=== PATIENT | female | born 1930 | race Caucasian/White ===

== ENCOUNTER 2017-05-31 22:23 | Emergency (ER) | payer OTHER, BC ==
[2017-05-31] MEDS ORDERED: ONDANSETRON 4 MG/2 ML VIAL IVPB ONE (22:44)
[2017-05-31 22:56] VITALS: TEMP 97.2; BMI 25.0
[2017-05-31] MEDS ORDERED: ONDANSETRON 4 MG/2 ML VIAL ONE (22:56)
[2017-05-31 23:03] LABS: BASO % 0.2 % (0-2.0); EOS % 0.3 % (0-4.5); HEMATOCRIT 46.4 % (32.4-45.2); HEMOGLOBIN 15.2 GM/dl (10.7-15.3); LYMPH % 11.9 % (8-40); MCH 28.9 pg (25.7-33.7); MCHC 32.8 g/dl (32.0-36.0); MEAN CELL VOLUME 88.2 fl (80-96); MONO % 13.2 % (3.8-10.2); NEUT % 74.4 % (42.8-82.8); PLATELET COUNT 248 K/MM3 (134-434); RBC 5.26 M/mm3 (3.60-5.2); RDW 13.5 % (11.6-15.6); WHITE BLOOD COUNT 8.1 K/mm3 (4.0-10.8)
[2017-05-31 23:08] LABS: ACTIVATED PTT 22.7 SECONDS (24.0-38.9)
[2017-05-31 23:11] LABS: ALBUMIN 4.5 g/dl (3.5-5.0); ALK PHOS 54 U/L (32-92); ANION GAP 9 (8-16); BILIRUBIN,TOTAL 0.5 mg/dl (0.2-1.0); BLOOD UREA NITROGEN 17 mg/dl (7-18); CALCIUM 9.7 mg/dl (8.4-10.2); CHLORIDE 102 mmol/L (98-107); CO2 27 mmol/L (22-28); CREATININE 0.7 mg/dl (0.6-1.3); GLUCOSE,RANDOM 160 mg/dl (74-106); SGOT/AST 25 U/L (10-42); SGPT/ALT 17 U/L (10-40); SODIUM 138 mmol/L (136-145); TOT PROT 7.2 g/dl (6.4-8.3)
[2017-05-31 23:12] LABS: INR 1.03 (0.82-1.09); PROTHROMBIN TIME (PATIENT) 11.5 SEC (10.2-13.0)
--- NOTE | 2017-05-31 23:19 | PDOC ---
History of Present Illness - General Chief Complaint: Nausea/Vomiting Stated Complaint: VOMITING SINCE 8PM Time Seen by Provider: 05/31/17 22:43 - History of Present Illness Initial Comments: 05/31/17 23:16 87 F with no PMH presents to ED with 1 day of abdominal pain and vomiting. Pt states that it began tonight around 5PM. She endorses abdominal distention and diffuse pain, with several episodes of NBNB emesis. Denies F/C. Denies diarrhea. States she feels constipated. Her last BM was yesterday and she notes only a small amount of stool. Pt denies h/o SBO, though she notes she has had several abdominal surgeries, including appy, edd, and bladder surgery. Pt denies CP/SOB. Past History - Past Medical History Allergies/Adverse Reactions: Allergies Allergy/AdvReac Type Severity Reaction Status Date / Time codeine Allergy Verified 05/31/17 22:45 Sulfa (Sulfonamide Allergy Verified 05/31/17 22:45 Antibiotics) Home Medications: Ambulatory Orders Amlodipine Besylate [Norvasc -] 2.5 mg PO DAILY 08/03/14 Atorvastatin Ca [Lipitor] 10 mg PO HS 08/03/14 Ramipril 10 mg PO DAILY 08/03/14 Zolpidem Tartrate [Ambien] 5 mg PO HS 05/31/17 COPD: No Disorders: Yes HTN: Yes Hypercholesterolemia: Yes - Surgical History Appendectomy: Yes Cholecystectomy: Yes - Suicide/Smoking/Psychosocial Hx Smoking History: Former smoker Have you smoked in the past 12 months: Yes If you are a former smoker, when did you quit?: 50 Information on smoking cessation initiated: No Hx Alcohol Use: No Drug/Substance Use Hx: No Substance Use Type: Alcohol Review of Systems - Review of Systems Comments:: 05/31/17 23:17 "GENERAL/CONSTITUTIONAL: No fever or chills. No weakness. HEAD, EYES, EARS, NOSE AND THROAT: No change in vision. No ear pain or discharge. No sore throat. CARDIOVASCULAR: No chest pain or shortness of breath. RESPIRATORY: No cough, wheezing, or hemoptysis. GASTROINTESTINAL: +abdominal pain + N/V GENITOURINARY: No dysuria, frequency, or change in urination. MUSCULOSKELETAL: No joint or muscle swelling or pain. No neck or back pain. SKIN: No rash NEUROLOGIC: No headache, vertigo, loss of consciousness, or change in strength/ sensation. ENDOCRINE: No increased thirst. No abnormal weight change. HEMATOLOGIC/LYMPHATIC: No anemia, easy bleeding, or history of blood clots. ALLERGIC/IMMUNOLOGIC: No hives or skin allergy. " *Physical Exam - Vital Signs Last Vital Signs Temp Pulse Resp BP Pulse Ox 97.2 F L 70 18 147/53 99 05/31/17 22:50 05/31/17 22:50 05/31/17 22:50 05/31/17 22:50 05/31/17 22:50 - Physical Exam Comments: 05/31/17 23:18 "GENERAL: Awake, alert, and fully oriented, in no acute distress HEAD: No signs of trauma EYES: PERRLA, EOMI, sclera anicteric, conjunctiva clear ENT: Auricles normal inspection, hearing grossly normal, nares patent, oropharynx clear without exudates. Moist mucosa NECK: Nontender, no stepoffs, Normal ROM, supple, no lymphadenopathy, JVD, or masses LUNGS: Breath sounds equal, clear to auscultation bilaterally. No wheezes, and no crackles HEART: Regular rate and rhythm, normal S1 and S2, no murmurs, rubs or gallops ABDOMEN: Distended, tympanitic, diffuse TTP EXTREMITIES: Normal range of motion, no edema. No clubbing or cyanosis. No cords, erythema, or tenderness NEUROLOGICAL: Cranial nerves II through XII intact. 5/5 strength and sensation in all extremities, Normal speech, normal gait SKIN: Warm, Dry, normal turgor, no rashes or lesions noted. " Heart Score/ECG Review - History History: Slightly suspicious - Electrocardiogram EKG: Normal - Age Age: >/= 65 - Risk Factors Based on the list above the patient has:: No risk factors known - Troponin Troponin: 1-3x normal limit - Score Heart Score - Total: 3 - ECG Impressions Comment:: 06/01/17 02:13 NSR, no IFEANYI/STDs, no TWIs, axis wnl, intervals wnl, rate 80 ED Treatment Course - LABORATORY CBC & Chemistry Diagram: 05/31/17 22:45 05/31/17 22:45 - ADDITIONAL ORDERS Additional order review: Laboratory Results 05/31/17 05/31/17 22:45 22:45 PT with INR 11.5 INR 1.03 PTT (Actin FS) 22.7 L Sodium 138 Potassium 4.0 Chloride 102 Carbon Dioxide 27 Anion Gap 9 BUN 17 D Creatinine 0.7 D Creat Clearance w eGFR > 60 Random Glucose 160 H D Calcium 9.7 Total Bilirubin 0.5 D AST 25 D ALT 17 D Alkaline Phosphatase 54 D Creatine Kinase 107 Total Protein 7.2 Albumin 4.5 D 05/31/17 22:45 RBC 5.26 H MCV 88.2 MCHC 32.8 RDW 13.5 MPV 7.0 L Neutrophils % 74.4 Lymphocytes % 11.9 Monocytes % 13.2 H Eosinophils % 0.3 Basophils % 0.2 - RADIOLOGY Radiology Studies Ordered: Category Date Time Status ABDOMEN & PELVIS CT WITH CONTR [CT] Stat CT Scan 05/31/17 23:13 Ordered - Medications Given in the ED: ED Medications Discontinued Medications Generic Name Dose Route Start Last Admin Trade Name Freq PRN Reason Stop Dose Admin Ondansetron HCl 4 mg 05/31/17 22:44 05/31/17 23:01 Zofran Injection IVPB 05/31/17 22:45 4 mg ONCE ONE Administration Medical Decision Making - Medical Decision Making 05/31/17 23:18 87 F with abdominal pain/distention and N+V x 1 day. Concerning for obstruction , as pt has had multiple prior abdominal surgeries. Anginal equivalent unlikely given nonischemic EKG and lack of chest pain/SOB. - Labs - CTAP - IVF, zofran 06/01/17 00:43 CT read: "Mild basilar dependent atelectasis is noted The visualized cardiac chambers are normal size and configuration. Status post cholecystectomy with minimal biliary duct dilation. 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 Normal pancreas, spleen, adrenal glands and kidneys. The stomach and small bowel are normal. There is prominent proximal colonic distention with air and liquid stool, but no bowel wall thickening in distal solid stool, suggesting a diarrheal illness. No bowel obstruction. There is no aortic aneurysm. There is no significant retroperitoneal lymphadenopathy." CTAP without signs of obstruction. Shows likely diarrheal illness. Pt reassessed - now able to tolerate PO without vomiting. Pt's abdomen re-examined - no tenderness on exam. Pt likely with viral gastroenteritis. No evidence of colitis on CT. Pt well appearing, tolerating PO. 06/01/17 01:45 Troponin elevated to 0.15. I informed pt of her abnormal blood tests and that she may be having a heart attack. I recommended admission to hospital for trending of troponins and cardiology evaluation. Pt however adamantly denies any chest pain or shortness of breath, stating that she does not believe she is having a heart attack and wishes to go home. The patient is clinically sober, free from distracting injury , appears to have intact insight and judgment and reason and in my opinion has the capacity to make decisions. Pt is well appearing with normal vitals. HEART score calculated to be 3, even with mildly elevated troponin. Nonetheless, I recommend admission to hospital for tele monitoring and serial trops. However, pt is adamant about going home. Will DC at this time with strict return precautions. 06/01/17 02:51 I called pt to ensure she arrived home safely and asked how she was feeling. Pt states that she does not feel well. At this time, I stressed the importance of returning to the ER for further evaluation. Pt expresses understanding. She states that she cannot arrange transportation to the hospital, at which time I advised pt to call 911 immediately. Pt understands and states she will call 911. She states that she will be going to [facility], as this is where her primary doctors are. I called [place] emergency department and spoke with attending physician, who confirmed that the pt has arrived to their facility. I relayed the patient's lab results and CT results. The ED attending states that she will repeat the troponin and EKG. *DC/Admit/Observation/Transfer Diagnosis at time of Disposition: Gastroenteritis - Discharge Dispostion Disposition: HOME Condition at time of disposition: Stable Admit: Yes - Referrals Referrals: Yusra Barber [Primary Care Provider] - - Patient Instructions Printed Discharge Instructions: DI for Viral Gastroenteritis -- Adult Additional Instructions: Drink plenty of fluids to stay hydrated. You may have a viral illness causing your nausea and vomiting. You may develop diarrhea as well. We also found a small aneurysm in your splenic artery, which is likely unrelated to your symptoms today. You should have repeat imaging soon to make sure that this aneurysm does not get bigger. If you experience worsening abdominal pain, vomiting, chest pain, fevers, or any other concerning symptoms, return to the ER immediately. Otherwise, follow up with your primary doctor within 1 week for a re-evaluation. - Post Discharge Activity - Attestations Physician Attestion: 06/01/17 00:44 I, Dr. Eber Rodriguez MD, attest that this document has been prepared under my direction and personally reviewed by me in its entirety. I further attest, that it accurately reflects all work, treatment, procedures and medical decision -making performed by me.
[2017-06-01 00:25] LABS: LIPASE 198 U/L (73-393)
[2017-06-01] MEDS ORDERED: ACETAMINOPHEN INJECTION 100 ML IVPB ONE (00:41)
[2017-06-01] MEDS ORDERED: ACETAMINOPHEN 1000 MG/100 ML VIAL (NON FORMULARY) IVPB ONE (00:41)
[2017-06-01] MEDS ORDERED: SODIUM CHLORIDE 1,000 ML IV SCH (00:45)
[2017-06-01 01:40] VITALS: BP 140/69; PULSE 87
--- NOTE | 2017-06-02 11:52 | EKG ---
Test Reason : Blood Pressure : / mmHG Vent. Rate : 080 BPM Atrial Rate : 080 BPM P-R Int : 178 ms QRS Dur : 072 ms QT Int : 390 ms P-R-T Axes : 058 001 048 degrees QTc Int : 449 ms NORMAL SINUS RHYTHM MINIMAL VOLTAGE CRITERIA FOR LVH, MAY BE NORMAL VARIANT BORDERLINE ECG NO PREVIOUS ECGS AVAILABLE Confirmed by JENNIFER HARRY MD ([id number]) on 06/02/2017 11:51:54 AM Referred By: Confirmed By:JENNIFER HARRY MD
== END 2017-06-01 01:42 | disposition home or self-care (01) ==
LOC: FER 22:23
PROC: 3E033NZ Introduction of Analgesics, Hypnotics, Sedatives into Peripheral Vein, Percutaneous Approach (ICD-10-PCS; principal; 2017-05-31)
PROC: 3E033GC Introduction of Other Therapeutic Substance into Peripheral Vein, Percutaneous Approach (ICD-10-PCS; 2017-05-31)
DX: K52.9 Noninfective gastroenteritis and colitis, unspecified (principal); I10 Essential (primary) hypertension; E78.00 Pure hypercholesterolemia, unspecified; Z87.891 Personal history of nicotine dependence; K92.9 Disease of digestive system, unspecified
CPT/HCPCS: 36415; 74177-TC; 80053; 82550; 83690; 84484; 85025; 85610; 85730; 93005; 99281-25

== ENCOUNTER 2019-02-26 12:47 | Emergency (ER) | payer OTHER, BC ==
--- NOTE | 2019-02-26 12:52 | PDOC ---
History of Present Illness - General Chief Complaint: Bite Stated Complaint: LEFT LOWER LEG CAT BITE Time Seen by Provider: 02/26/19 12:51 - History of Present Illness Initial Comments: 02/26/19 13:03 88 year old with a history of HTN and HLD who presents after being bitten by a stray cat. The patient reports that there was an abandoned cat that "attacked" her and her dog. The patient reports that she knows that the cat did not have an logistics specialist. She was not able to capture the cat. ROS GENERAL/CONSTITUTIONAL: No fever or chills. No weakness. CARDIOVASCULAR: No chest pain or shortness of breath RESPIRATORY: No cough, wheezing, or hemoptysis. GASTROINTESTINAL: No nausea, vomiting, diarrhea or constipation. GENITOURINARY: No dysuria, frequency, or change in urination. MUSCULOSKELETAL: + joint or muscle swelling or pain. No neck or back pain. SKIN: No rash NEUROLOGIC: No headache, vertigo, loss of consciousness, or change in strength/ sensation. PE GENERAL: Awake, alert, and fully oriented, in no acute distress HEAD: No signs of trauma, normocephalic, atraumatic EYES: EOMI, sclera anicteric, conjunctiva clear ENT: oropharynx clear without exudates. Moist mucosa NECK: Normal ROM, supple LUNGS: No distress, speaks full sentences, clear to auscultation bilaterally HEART: Regular rate and rhythm, normal S1 and S2, no murmurs, rubs or gallops, peripheral pulses normal and equal bilaterally. EXTREMITIES : L calf, 3 erythematous puncture wounds NEUROLOGICAL: Cranial nerves II through XII grossly intact. Normal speech, normal gait, no focal sensorimotor deficits SKIN: Warm, Dry, normal turgor, no rashes or lesions noted MDM DDX including but not limited to: animal bite w/ risk of rabies ED Course: Last tetanus 2005 Patient treated with boostrix, IgG rabies, Rabies vaccine Patient d/c with vaccine regimen and pcp f/u return precuations Dyan Jeter, PGY2 Emergency Medicine Past History - Past Medical History Allergies/Adverse Reactions: Allergies Allergy/AdvReac Type Severity Reaction Status Date / Time codeine Allergy Verified 02/26/19 12:49 Sulfa (Sulfonamide Allergy Verified 02/26/19 12:49 Antibiotics) Home Medications: Ambulatory Orders Amlodipine Besylate [Norvasc -] 2.5 mg PO DAILY 08/03/14 Atorvastatin Ca [Lipitor] 10 mg PO HS 08/03/14 Ramipril 10 mg PO DAILY 08/03/14 Zolpidem Tartrate [Ambien] 5 mg PO HS 05/31/17 Amox-Tr/K Cl [Augmentin - 875Mg Tablet] 1 tab PO BID #14 tablet 02/26/19 Amox-Tr/K Cl [Augmentin - 875Mg Tablet] 1 tab PO BID #14 tablet 02/26/19 COPD: No Disorders: Yes HTN: Yes Hypercholesterolemia: Yes - Surgical History Appendectomy: Yes Cholecystectomy: Yes - Psycho Social/Smoking Cessation Hx Smoking History: Former smoker Have you smoked in the past 12 months: Yes If you are a former smoker, when did you quit?: 50 Hx Alcohol Use: No Drug/Substance Use Hx: No Substance Use Type: Alcohol Discharge - Discharge Information Problems reviewed: Yes Clinical Impression/Diagnosis: Animal bite Condition: Stable Disposition: HOME - Admission No - Additional Discharge Information Prescriptions: Amox-Tr/K Cl [Augmentin - 875Mg Tablet] 1 tab PO BID #14 tablet Amox-Tr/K Cl [Augmentin - 875Mg Tablet] 1 tab PO BID #14 tablet - Follow up/Referral - Patient Discharge Instructions Patient Printed Discharge Instructions: How to Care for a Wild Animal Bite, DI for Animal Bites, DI for Rabies Vaccine Additional Instructions: You were seen in the ED for a stray cat bite You were treated with rabies vaccine, rabies IgG, tetanus shot You should follow up with your Family Doctor within 1 week. You have a prescription of antibiotics to your pharmacy that should be taken as prescribed. Return to the ED on Tuesday03/05/19 and Tuesday03/19/19 for completion of your Rabies vaccine series Return to the ED immediately if you have worsening pain, swelling, warmth, redness or fever at the bite site. - Post Discharge Activity Work/Back to School Note: Rabies Vaccination F/U Brittni.
--- NOTE | 2019-02-26 12:55 | PDOC ---
Attending Attestation - Resident Resident Name: Dyan Jeter - ED Attending Attestation I have performed the following: I have examined & evaluated the patient, The case was reviewed & discussed with the resident, I agree w/resident's findings & plan, Exceptions are as noted - HPI HPI: 02/26/19 13:09 88yo female with hx of htn presents ambulatory for eval of a cat bite. [place] and a stray cat attacked both her and her dog. Pt w 3 cat bite puncture wounds to the LLE. No active bleeding or erythema. Pt states her puppy was also attacked and is at the vet. Last tetanus was 2005. Pt denies all other injuries or complaints. Per the patient, the cat does not belong to anyone at the car wash - they put the cat in a brown box when she had kittens- most likely a stray cat. - Physicial Exam PE: 02/26/19 13:11 Gen: aaox3, anxious heart: +s1s2 reg lungs: cta b/l abd: soft, nt/nd +bs ext: LLE lateral calf with 3 puncture wounds, no surrounding erythema or bleeding. No calf ttp - Medical Decision Making 02/26/19 13:13 88yo female s/p cat bit to the LLE -concerned the cat was not vaccinated -will need an updated tetanus, will need rabies immunoglobulin and vaccine -will need abx given cat bite -discussed rabies vaccine in detail and immunoglobulin - pt agrees with the plan -will start augmentin 02/26/19 13:58 pt received all meds augmentin sent to pharmacy tolerated all injections stable for dc to home
[2019-02-26 13:01] VITALS: BP 153/71; PULSE 98; TEMP 98.1; BMI 23.6
[2019-02-26] MEDS ORDERED: DIPHTH,PERTUSS(ACELL),TET 0.5 ML DISP.SYRIN IM ONE ×2 (13:02→13:24)
[2019-02-26] MEDS ORDERED: RABIES IMMUNE GLOBULIN 300 UNITS/1 ML VIAL IM ONE (13:02)
[2019-02-26] MEDS ORDERED: RABIES VACCINE (PCEC)/PF 2.5 UNIT/VIAL IM ONE ×2 (13:03→13:23)
[2019-02-26] MEDS ORDERED: AMOX TR/POT CLAV 875MG/125MG TABLETS (FP) PO ONE (13:09)
[2019-02-26] MEDS ORDERED: AMOX TR/POT CLAV 875MG/125MG TABLETS (FP) ONE (13:23)
[2019-02-26] MEDS ORDERED: RABIES IMMUNE GLOBULIN 300 UNITS/1 ML VIAL ONE (13:24)
== END 2019-02-26 14:30 | disposition home or self-care (01) ==
LOC: FER 12:47
PROC: 3E0234Z Introduction of Serum, Toxoid and Vaccine into Muscle, Percutaneous Approach (ICD-10-PCS; principal; 2019-02-26)
PROC: 3E0234Z Introduction of Serum, Toxoid and Vaccine into Muscle, Percutaneous Approach (ICD-10-PCS; 2019-02-26)
DX: S81.852A Open bite, left lower leg, initial encounter (principal); W55.01XA Bitten by cat, initial encounter; Y93.89 Activity, other specified; Y92.410 Unspecified street and highway as the place of occurrence of the external cause; Z87.891 Personal history of nicotine dependence; N39.9 Disorder of urinary system, unspecified; I10 Essential (primary) hypertension; E78.00 Pure hypercholesterolemia, unspecified; Z88.6 Allergy status to analgesic agent; Z88.2 Allergy status to sulfonamides; Z20.3 Contact with and (suspected) exposure to rabies; Z23 Encounter for immunization
CPT/HCPCS: 90375; 90675; 90715; 99283-25

== ENCOUNTER 2019-03-01 12:04 | Emergency (ER) | payer OTHER, BC ==
[2019-03-01] MEDS ORDERED: RABIES VACCINE (PCEC)/PF 2.5 UNIT/VIAL IM ONE ×2 (12:11→12:25)
--- NOTE | 2019-03-01 12:11 | PDOC ---
History of Present Illness - General Chief Complaint: Revisit,Rabies Injection Stated Complaint: RABIES VACCINE Time Seen by Provider: 03/01/19 12:10 History Source: Patient Exam Limitations: No Limitations - History of Present Illness Initial Comments: 88 year old female with PMH HTN, HLD presented to ED for second round of rabies vaccination after being bit by a stray cat. Pt reported she stopped the Augmentin after 3 pills on her own 2/2 n/v/d. She denied increasing redness at the site, fever. She reported she was seen by her PCP today, who switched the medication for her and sent a prescription to the pharmacy, she does not know the name of the medicine and has not picked it up yet. ROS General: denied fever, chills, generalized weakness. HEENT: denied sore throat, rhinorrhea, ear pain. Cardiovascular: denied chest pain, palpitations, syncope, diaphoresis. Respiratory: denied shortness of breath, cough, sputum production, hemoptysis. Gastrointestinal: denied abdominal pain, nausea, vomiting, diarrhea, constipation, blood in stool. Genitourinary: denied dysuria, increased urinary frequency, hematuria, urinary incontinence, flank pain. Back: denied back pain. Musculoskeletal: denied joint pain, muscle pain, joint swelling. Neurological: denied headache, dizziness, numbness, tingling, weakness. Integumentary: denied rash, laceration, abrasion. Hematologic/Lymphatic: denied bruising or bleeding. PE Constitutional: Well-nourished, Well-developed, appearing stated age. HEENT: head is normocephalic, atraumatic. EOMI. PERRLA. Neck: supple. Full ROM. Cardiovascular: regular heart rhythm. no murmurs. no pericardial friction rub. Respiratory: clear to auscultation bilaterally. no crackles, rhonchi or wheezing. no stridor. Gastrointestinal: soft, nontender. normal bowel sounds. no rebound, guarding, masses. Extremities: peripheral pulses intact. no lower extremity edema. Neurological: CN 2-12 grossly intact. moves all four extremities. Psych: awake, alert, oriented x3. follows commands. answers questions appropriately. Skin: 2 cm abrasion to left low leg. no surrounding erythema. no streaking. no crepitus. no tenderness around the area. Past History - Past Medical History Allergies/Adverse Reactions: Allergies Allergy/AdvReac Type Severity Reaction Status Date / Time codeine Allergy Verified 02/26/19 12:49 Sulfa (Sulfonamide Allergy Verified 02/26/19 12:49 Antibiotics) Home Medications: Ambulatory Orders Amlodipine Besylate [Norvasc -] 2.5 mg PO DAILY 08/03/14 Atorvastatin Ca [Lipitor] 10 mg PO HS 08/03/14 Ramipril 10 mg PO DAILY 08/03/14 Zolpidem Tartrate [Ambien] 5 mg PO HS 05/31/17 COPD: No Disorders: Yes HTN: Yes Hypercholesterolemia: Yes - Surgical History Appendectomy: Yes Cholecystectomy: Yes - Psycho Social/Smoking Cessation Hx Smoking History: Former smoker Have you smoked in the past 12 months: Yes If you are a former smoker, when did you quit?: 50 Hx Alcohol Use: No Drug/Substance Use Hx: No Substance Use Type: Alcohol Medical Decision Making - Medical Decision Making 88 year old female with above PMH presented to ED for 2nd Rabies vaccination 3s/ p exposure bite by unknown feline. Initial Vital Signs Temp Pulse Resp BP Pulse Ox 98.2 F 77 16 134/44 L 99 03/01/19 12:05 03/01/19 12:05 03/01/19 12:05 03/01/19 12:05 03/01/19 12:05 Afebrile. No tachycardia. No tachypnea. Labs ordered: none Imaging ordered: none Medications ordered: Rabies vaccination Pt reported her PCP has provided her with replacement antibiotic for Augmentin. Clinically there is no cellulitis at this time. Pt informed that if she needs an antibiotic she can call for prescription should something happen when she gets to the pharmacy. Pt discharged. Discharge - Discharge Information Problems reviewed: Yes Clinical Impression/Diagnosis: Need for rabies vaccination Condition: Good Disposition: HOME - Admission No - Follow up/Referral Referrals: Rylee Stevens [Primary Care Provider] - - Patient Discharge Instructions Patient Printed Discharge Instructions: DI for Rabies Vaccine Additional Instructions[facility] for your next rabies vaccination. Return sooner for increasing redness around the site of the bite, fever, vomiting, chest pain, shortness of breath or any other new, worsening or concerning symptoms. - Post Discharge Activity Work/Back to School Note: Rabies Vaccination F/U Brittni.
[2019-03-01 12:17] VITALS: BP 134/44; PULSE 77; TEMP 98.2; BMI 23.8
--- NOTE | 2019-03-01 12:27 | PDOC ---
Attending Attestation - Resident Resident Name: IvettJoannaa - ED Attending Attestation I have performed the following: I have examined & evaluated the patient, The case was reviewed & discussed with the resident, I agree w/resident's findings & plan, Exceptions are as noted - HPI HPI: 03/01/19 12:26 88y F presenting for redosing of rabies for her 2nd shot pt was bit by a cat and was started on abx wound is well without redness/swelling/pain/fevers pt has no complaints exam: LLE shows a scab without erythema/induration/fluctuance/pain no signs of infection will give her her rabies shot return for furture shots as discussed - Physicial Exam PE: 03/01/19 13:00 see agove - Medical Decision Making 03/01/19 13:00 see above
== END 2019-03-01 12:46 | disposition home or self-care (01) ==
LOC: FER 12:04
PROC: 3E0234Z Introduction of Serum, Toxoid and Vaccine into Muscle, Percutaneous Approach (ICD-10-PCS; principal; 2019-03-01)
DX: Z23 Encounter for immunization (principal); Z20.3 Contact with and (suspected) exposure to rabies; Z88.2 Allergy status to sulfonamides; Z88.6 Allergy status to analgesic agent
CPT/HCPCS: 90675; 99281-25

== ENCOUNTER 2019-03-05 09:31 | Emergency (ER) | payer OTHER, BC ==
--- NOTE | 2019-03-05 09:47 | PDOC ---
History of Present Illness - General Chief Complaint: Revisit,Rabies Injection Stated Complaint: RABIES VACCINE Time Seen by Provider: 03/05/19 09:46 - History of Present Illness Initial Comments: 03/05/19 09:46 pt presents to the ED requesting rabies vaccine after cat bite on 02/26. Denies complaints. Denies new symptoms. 03/05/19 09:47 Past History - Past Medical History Allergies/Adverse Reactions: Allergies Allergy/AdvReac Type Severity Reaction Status Date / Time codeine Allergy Verified 02/26/19 12:49 Sulfa (Sulfonamide Allergy Verified 02/26/19 12:49 Antibiotics) Home Medications: Ambulatory Orders Amlodipine Besylate [Norvasc -] 2.5 mg PO DAILY 08/03/14 Atorvastatin Ca [Lipitor] 10 mg PO HS 08/03/14 Ramipril 10 mg PO DAILY 08/03/14 Zolpidem Tartrate [Ambien] 5 mg PO HS 05/31/17 COPD: No Disorders: Yes HTN: Yes Hypercholesterolemia: Yes - Surgical History Appendectomy: Yes Cholecystectomy: Yes - Immunization History TDAP Vaccination: Yes (02/26/2019) - Psycho Social/Smoking Cessation Hx Smoking History: Former smoker Have you smoked in the past 12 months: Yes If you are a former smoker, when did you quit?: 50 Hx Alcohol Use: No Drug/Substance Use Hx: No Substance Use Type: Alcohol Review of Systems - Review of Systems Able to Perform ROS?: Yes Is the patient limited Mohawk proficient: No Constitutional: No: Symptoms Reported, See HPI, Chills, Diaphoresis, Fever, Loss of Appetite, Malaise, Night Sweats, Weakness, Weight Stable, Unintentional Wgt. Loss, Unexplained wgt Loss, Other *Physical Exam - Physical Exam Comments: 03/05/19 09:48 gen: alert, NAD Medical Decision Making - Medical Decision Making 03/05/19 09:48 Pt presents to the ED for rabies vaccine. See note from 02/26 for documentation of injury. Vaccine administered in the ED. Will discharge home. Discharge - Discharge Information Problems reviewed: Yes Clinical Impression/Diagnosis: Need for rabies vaccination Condition: Good Disposition: HOME - Admission No - Additional Discharge Information Prescription Drug Monitoring Program (I-STOP) results: I-STOP not reviewed - Follow up/Referral Referrals: Rylee Stevens [Primary Care Provider] - - Patient Discharge Instructions Patient Printed Discharge Instructions: DI for Rabies Vaccine - Post Discharge Activity
[2019-03-05] MEDS ORDERED: RABIES VACCINE (PCEC)/PF 2.5 UNIT/VIAL IM ONE ×2 (09:48→10:03)
[2019-03-05 10:01] VITALS: BP 140/50; PULSE 62; TEMP 98; BMI 23.8
== END 2019-03-05 10:10 | disposition home or self-care (01) ==
LOC: FER 09:31
PROC: 3E0234Z Introduction of Serum, Toxoid and Vaccine into Muscle, Percutaneous Approach (ICD-10-PCS; principal; 2019-03-05)
DX: Z23 Encounter for immunization (principal); Z20.3 Contact with and (suspected) exposure to rabies
CPT/HCPCS: 90471; 90675; 96372; 99281-25

== ENCOUNTER 2019-03-12 11:38 | Emergency (ER) | payer OTHER, BC ==
--- NOTE | 2019-03-12 11:41 | PDOC ---
History of Present Illness - General Chief Complaint: Revisit,Rabies Injection Stated Complaint: RABIES VACCINE Time Seen by Provider: 03/12/19 11:40 - History of Present Illness Initial Comments: 03/12/19 12:07 88 years old status post cat bite to left lower extremity on 02/26 presents to the ED for her final rabies vaccine she is well-appearing no apparent distress but no complaints at this time Past History - Past Medical History Allergies/Adverse Reactions: Allergies Allergy/AdvReac Type Severity Reaction Status Date / Time codeine Allergy Verified 02/26/19 12:49 Sulfa (Sulfonamide Allergy Verified 02/26/19 12:49 Antibiotics) Home Medications: Ambulatory Orders Amlodipine Besylate [Norvasc -] 2.5 mg PO DAILY 08/03/14 Atorvastatin Ca [Lipitor] 10 mg PO HS 08/03/14 Ramipril 10 mg PO DAILY 08/03/14 Zolpidem Tartrate [Ambien] 5 mg PO HS 05/31/17 COPD: No Disorders: Yes HTN: Yes Hypercholesterolemia: Yes - Surgical History Appendectomy: Yes Cholecystectomy: Yes - Immunization History TDAP Vaccination: Yes (02/26/2019) - Psycho Social/Smoking Cessation Hx Smoking History: Former smoker Have you smoked in the past 12 months: Yes If you are a former smoker, when did you quit?: 50 Hx Alcohol Use: No Drug/Substance Use Hx: No Substance Use Type: Alcohol Review of Systems - Review of Systems Comments:: 03/12/19 12:07 ROS: A complete review of 10 out of 10 review of systems is taken and is negative apart from what is previously mentioned below and in the HPI. *Physical Exam - Physical Exam Comments: 03/12/19 12:08 Vitals: Triage Vital signs reviewed General Appearance: No acute distress, well nourished well developed, Skin: Warm and dry, no rashes or lesions, no rash, no petechiae Psych: Normal mood, normal affect Medical Decision Making - Medical Decision Making 03/12/19 12:08 No evidence of infection well-appearing final rabies vaccine given GIOVANNA form updated Findings, the need for follow-up and strict return instructions discussed with patient. Discharge - Discharge Information Problems reviewed: Yes Clinical Impression/Diagnosis: Need for rabies vaccination Condition: Stable Disposition: HOME - Admission No - Follow up/Referral Referrals: Rylee Stevens [Primary Care Provider] - - Patient Discharge Instructions Patient Printed Discharge Instructions: DI for Rabies Vaccine Additional Instructions: Return to ED for any signs of infection or for any concerns. - Post Discharge Activity
[2019-03-12 11:43] VITALS: BP 122/57; PULSE 62; TEMP 97.8; BMI 23.8
[2019-03-12] MEDS ORDERED: RABIES VACCINE (PCEC)/PF 2.5 UNIT/VIAL IM ONE ×2 (11:50→11:54)
== END 2019-03-12 12:10 | disposition home or self-care (01) ==
LOC: FER 11:38
PROC: 3E0234Z Introduction of Serum, Toxoid and Vaccine into Muscle, Percutaneous Approach (ICD-10-PCS; principal; 2019-03-12)
DX: Z23 Encounter for immunization (principal); Z20.3 Contact with and (suspected) exposure to rabies; I10 Essential (primary) hypertension; E78.00 Pure hypercholesterolemia, unspecified; Z88.2 Allergy status to sulfonamides; Z88.6 Allergy status to analgesic agent
CPT/HCPCS: 90675; 99281-25